=== PATIENT | male | born 1940 | race Caucasian/White ===

== ENCOUNTER 2017-03-18 18:05 | Emergency (ER) | payer MEDICARE, OTHER ==
[~2017-03-18] VITALS: Ht 185.4 cm; Wt 98.0 kg
[~2017-03-18 18:05] MED LIST: LISI10TA4 PO; PANT-47 PO
[2017-03-18 18:37] LABS: HEMATOCRIT 48.6 % (42.0-52.0); HEMOGLOBIN 16.1 g/dl (14.0-17.9); MEAN CORPUSCULAR HEMOGLOBIN 30.6 PG (27.0-31.0); MEAN CORPUSCULAR HGB CONC 33.1 % (33.0-36.5); MEAN CORPUSCULAR VOLUME 92.2 FL (78-98); MEAN PLATELET VOLUME 9.3 FL (7.4-10.4); PLATELET COUNT 181 X10'3 (140-440); RED BLOOD COUNT 5.27 X10'6 (4.70-6.10); RED CELL DISTRIBUTION WIDTH 14.6 % (11.5-14.5); WHITE BLOOD COUNT 6.3 X10'3 (4.5-11.0)
[2017-03-18 18:48] LABS: INR 1.1 INR; PARTIAL THROMBOPLASTIN TIME 29 SECONDS (22-32); PROTHROMBIN TIME 11.2 SECONDS (9.0-12.0)
[2017-03-18 18:52] LABS: ALANINE AMINOTRANSFERASE 22 U/L (12-78); ALBUMIN 3.9 G/DL (3.4-5.0); ALBUMIN/GLOBULIN RATIO 1.1 (1.1-1.5); ALKALINE PHOSPHATASE 102 IU/L (46-116); ANION GAP 7 (8-16); ASPARTATE AMINO TRANSFERASE 16 U/L (10-37); BILIRUBIN,TOTAL 0.6 MG/DL (0.1-1.0); BLOOD UREA NITROGEN 11 MG/DL (7-18); BUN/CREATININE RATIO 10.1 (5.4-32.0); CALCIUM 8.9 MG/DL (8.5-10.1); CHLORIDE 103 MMOL/L (99-107); CREATININE 1.09 MG/DL (0.60-1.10); GLUCOSE 97 MG/DL (70-104); POTASSIUM 4.2 MMOL/L (3.5-5.1); SODIUM 139 MMOL/L (135-145); TOTAL CARBON DIOXIDE 28.7 MMOL/L (24-32); TOTAL CELLS COUNTED 100; TOTAL PROTEIN 7.6 G/DL (6.4-8.2); eGFR 66 ML/MIN
[2017-03-18 18:53] LABS: LARGE PLATELETS FEW; PLATELET ESTIMATE NORMAL
[2017-03-18] MEDS ORDERED: normal saline 1000ML IV soln IVB ONE (20:30)
[2017-03-18] MEDS ORDERED: oseltamivir phos 75mg capsule PO ONE (20:35)
[2017-03-18] MEDS ORDERED: benzonatate 100mg capsule PO ONE (20:35)
[2017-03-18] MEDS ORDERED: levoFLOXACIN 750MG TABLET PO ONE (20:35)
[2017-03-18] MEDS ORDERED: ipratropium/albuterol 3ml nebule NEB ONE (21:35)
[2017-03-18] MEDS ORDERED: AZIT-63 PO (22:23)
[2017-03-18] MEDS ORDERED: TAM75C PO (22:23)
[2017-03-18] MEDS ORDERED: BENZ-38 PO (22:23)
[2017-03-18] MEDS ORDERED: diltiazem 30mg tablet PO ONE (22:35)
[2017-03-18] MEDS ORDERED: diltiazem 5mg/ml 5ml inj. IV ONE (22:35)
[2017-03-18] MEDS ORDERED: DILT180C95 PO (22:51)
[2017-03-19 01:03] VITALS: BP 108/65
[2017-03-19] MEDS ORDERED: ondansetron 4mg rapidly disintigrating tab PO ONE (01:15)
== END 2017-03-19 01:43 | disposition home or self-care (01) ==
LOC: ER 18:06
DX: J11.1 Influenza due to unidentified influenza virus with other respiratory manifestations (principal); J40 Bronchitis, not specified as acute or chronic; I48.91 Unspecified atrial fibrillation; I10 Essential (primary) hypertension; K21.9 Gastro-esophageal reflux disease without esophagitis; Z88.0 Allergy status to penicillin
CPT/HCPCS: 36415; 71010; 80053; 83880; 84484; 85025; 85610; 85730; 87502; 87503; 93005; 94640; 94760; 96361; 96374; 99285; J3490; J7030

== ENCOUNTER 2017-05-27 20:11 | Emergency (ER) | payer MEDICARE, OTHER ==
[~2017-05-27] VITALS: Ht 185.4 cm; Wt 73.8 kg
[~2017-05-27 20:11] MED LIST changes: +DILT180C95 PO
[2017-05-27 21:18] LABS: BASOPHILS # (AUTO) 0.1 X10'3 (0-0.2); BASOPHILS % (AUTO) 0.7 % (0-1); EOSINOPHILS # (AUTO) 0.1 X10'3 (0-0.9); EOSINOPHILS % (AUTO) 1.4 % (0-6); HEMATOCRIT 45.6 % (42.0-52.0); HEMOGLOBIN 15.6 g/dl (14.0-17.9); LYMPHOCYTES # (AUTO) 2.6 X10'3 (1.1-4.8); LYMPHOCYTES % (AUTO) 26.4 % (21-51); MEAN CORPUSCULAR HEMOGLOBIN 30.8 PG (27.0-31.0); MEAN CORPUSCULAR HGB CONC 34.1 % (33.0-36.5); MEAN CORPUSCULAR VOLUME 90.2 FL (78-98); MEAN PLATELET VOLUME 9.1 FL (7.4-10.4); MONOCYTES # (AUTO) 1.2 X10'3 (0-0.9); MONOCYTES % (AUTO) 11.6 % (2-12); NEUTROPHILS % (AUTO) 59.9 % (42-75); PLATELET COUNT 218 X10'3 (140-440); RED BLOOD COUNT 5.05 X10'6 (4.70-6.10); RED CELL DISTRIBUTION WIDTH 15.1 % (11.5-14.5)
[2017-05-27 21:30] LABS: INR 1.1 INR; PARTIAL THROMBOPLASTIN TIME 28 SECONDS (22-32); PROTHROMBIN TIME 10.9 SECONDS (9.0-12.0)
[2017-05-27 21:33] LABS: ALANINE AMINOTRANSFERASE 26 U/L (12-78); ALBUMIN 3.6 G/DL (3.4-5.0); ALBUMIN/GLOBULIN RATIO 1.1 (1.1-1.5); ALKALINE PHOSPHATASE 99 IU/L (46-116); ANION GAP 4 (8-16); ASPARTATE AMINO TRANSFERASE 14 U/L (10-37); BILIRUBIN,TOTAL 1.3 MG/DL (0.1-1.0); BLOOD UREA NITROGEN 16 MG/DL (7-18); BUN/CREATININE RATIO 17.6 (5.4-32.0); CALCIUM 8.8 MG/DL (8.5-10.1); CHLORIDE 105 MMOL/L (99-107); CREATININE 0.91 MG/DL (0.60-1.10); GLUCOSE 101 MG/DL (70-104); SODIUM 139 MMOL/L (135-145); TOTAL CARBON DIOXIDE 30.1 MMOL/L (24-32); eGFR 81 ML/MIN
[2017-05-27 23:14] VITALS: BP 134/88
== END 2017-05-27 23:18 | disposition home or self-care (01) ==
LOC: ER 20:12
DX: R51 Headache (principal); I48.91 Unspecified atrial fibrillation; I10 Essential (primary) hypertension; K21.9 Gastro-esophageal reflux disease without esophagitis; Z79.01 Long term (current) use of anticoagulants; Z88.0 Allergy status to penicillin
CPT/HCPCS: 36415; 70450; 80053; 85025; 85610; 85730; 99285

== ENCOUNTER 2020-06-12 13:08 | Emergency (ER) | payer MEDICARE, OTHER ==
[~2020-06-12] VITALS: Ht 185.4 cm; Wt 100.0 kg
[~2020-06-12 13:08] MED LIST changes: +DILT-36 PO; -DILT180C95 PO; +LISI10TA27 PO; -LISI10TA4 PO
[2020-06-12 14:05] LABS: HEMOGLOBIN 8.8 g/dl (14.0-17.9)
[2020-06-12 14:07] LABS: HEMATOCRIT 27.1 % (42.0-52.0); MEAN CORPUSCULAR HEMOGLOBIN 32.3 PG (27.0-31.0); MEAN CORPUSCULAR HGB CONC 32.6 g/dL (33.0-36.5); MEAN CORPUSCULAR VOLUME 98.9 FL (78-98); MEAN PLATELET VOLUME 8.5 FL (7.4-10.4); PLATELET COUNT 69 X10'3 (140-440); RED BLOOD COUNT 2.74 X10'6 (4.70-6.10); RED CELL DISTRIBUTION WIDTH 19.4 % (11.5-14.5); WHITE BLOOD COUNT 1.6 X10'3 (4.5-11.0)
[2020-06-12 14:27] LABS: ALANINE AMINOTRANSFERASE 24 U/L (12-78); ALBUMIN 3.4 G/DL (3.4-5.0); ALKALINE PHOSPHATASE 104 IU/L (46-116); ANION GAP 9 (8-16); ASPARTATE AMINO TRANSFERASE 17 U/L (10-37); BILIRUBIN,TOTAL 1.3 MG/DL (0.1-1.0); BLOOD UREA NITROGEN 11 MG/DL (7-18); BUN/CREATININE RATIO 15.1 (5.4-32.0); CALCIUM 8.8 MG/DL (8.5-10.1); CHLORIDE 107 MMOL/L (99-107); CREATININE 0.73 MG/DL (0.60-1.10); GLUCOSE 116 MG/DL (70-104); SODIUM 144 MMOL/L (135-145); TOTAL CARBON DIOXIDE 27.6 MMOL/L (24-32); TOTAL PROTEIN 6.7 G/DL (6.4-8.2); eGFR > 90 ML/MIN
[2020-06-12 14:33] LABS: ANISOCYTOSIS 2+; PLATELET ESTIMATE DECREASED; TOTAL CELLS COUNTED 100
[2020-06-12 14:35] LABS: HYPOCHROMASIA 1+; POLYCHROMASIA 2+
[2020-06-12 14:36] LABS: ELLIPTOCYTES 1+; SCHISTOCYTES FEW; TARGET CELLS 1+
[2020-06-12 15:05] VITALS: BP 123/81
== END 2020-06-12 15:07 | disposition home or self-care (01) ==
LOC: ER 13:09
DX: D72.819 Decreased white blood cell count, unspecified (principal); D64.9 Anemia, unspecified; R06.02 Shortness of breath; I48.91 Unspecified atrial fibrillation; I10 Essential (primary) hypertension; K21.9 Gastro-esophageal reflux disease without esophagitis; Z98.890 Other specified postprocedural states; Z56.0 Unemployment, unspecified; Z88.0 Allergy status to penicillin; Z79.899 Other long term (current) drug therapy
CPT/HCPCS: 36415; 80053; 85007; 85025; 99283